=== PATIENT | female | born 1950 | race Caucasian/White ===

== ENCOUNTER 2024-12-26 07:39 | Day surgery (SDC) | payer MEDICARE, OTHER, SELFPAY ==
[2024-12-13 11:03] VITALS: BMI 20.3
[2024-12-26] VITALS (15 sets, daily range): BP systolic 112–145; BP diastolic 50–73; BMI 20.3
[2024-12-26] MEDS: TYLENOL 1000 MG PO (09:07)
[2024-12-26 11:21] LABS: ACT-LR - POC 226 Seconds (116-155)
--- NOTE | 2024-12-26 11:54 | ITS.CL.ABL ---
Graduate Advisor - Ablation
Ablation
Procedure Report:
ELECTROPHYSIOLOGY ABLATION STUDY
DATE:: December 26, 2024�����������������������������REFERRING: Dr. Philipp England
INDICATION: Paroxysmal supraventricular tachycardia in the form of atrial fibrillation.� Failed flecainide therapy
HISTORY: See H and P.� As above
ANTIARRHYTHMIC DRUG: Flecainide
PRE-PROCEDURE SISSY: No intracardiac thrombus
PRESENTING RHYTHM: Sinus bradycardia
'TIME-OUT':��called and confirmed.
SEDATION/ANESTHESIA:��provided via the anesthesia department using general anesthesia (LMA).
INTRAVENOUS/ARTERIAL ACCESS:
Right femoral venous - 8Fr
Left femoral venous - 8 Fr, 6 Fr
Ultrasound guidance for bilateral femoral vein access was utilized by me to obtain access with demonstration of normal anatomy
CHADS-VASC Score:
Vascade vascular closure and lidocaine with epinephrine was delivered to the right and left groins.
HAS-Bled Score
PROCEDURE:
1.��A decapolar CS catheter was placed within the CS for mapping and pacing.��This was also used as the reference catheter for the 3-D map.
2. The intracardiac ultrasound catheter was positioned in the RA to identify the FO for targeting of transseptal puncture, assist��in identification of the pulmonary vein ostia, monitoring pre and post ablation pulmonary vein flow velocities,
monitoring for 'bubble' formation during RF application as a sign of thermal injury,��and to monitor for pericardial effusion during mapping and ablation procedure.���Left atrial size, LV ejection fraction, and pulmonary vein flows were monitored
pre and post ablation procedure. The other valves were inspected and found to be free of significant regurgitation or stenosis.
3.��Half of the calculated heparin bolus was administered prior to the first transeptal puncture.��Transseptal puncture was performed to diagnose RA and LA pressure so that safety of LA mapping and ablation could be further assessed, and to access
the left atrium and pulmonary veins for mapping and ablation.��This entailed advancing an 8 Fr SL-1 sheath with dilator into the superior vena cava and withdrawing both (monitoring intracardiac ultrasound, fluoroscopy and tip pressure) with the tip
oriented toward the atrial septum.��The fossa ovalis was engaged (indicated by sudden displacement of the sheath tip as well as tenting of the fossa seen on intracardiac ultrasound).��Left atrial access required a pass with the Brockenbrough needle
extended.��Left atrial catheter position was confirmed by pressure monitoring (RA mean pressure 8 mm Hg and LA mean presure 14 mm Hg), LA saturation (99%),��as well as fluoroscopy.��The sheath was advanced over the dilator and positioned in the left
atrium.��This procedure was repeated for the Agilis sheath.��The remainder of the calculated heparin bolus was administered and heparin was
infused to maintain ACT at 300 -350 seconds throughout the case.
4.��RA pacing was performed via the proximal decapolar poles and LA pacing was performed via the distal decapolr poles.
5. A quadrapolar catheter was first positioned at the His position for His Bundle recording which was tagged via the 3-D Navex sytem, and then passed to the RVA for RV pacing and recording.
6. The multipolar catheter and the Penta splint catheter placed in each of the LIPV, LSPV, RSPV and the RIPV.��
7.��Next, a 3-D map was created using Navex.���A 3-D reconstructed CT image was compared to the 3-D Navex map to assist in anatomic interpretation, mapping and ablation.��The CT image and the NavX image were fused.
8. A total of 50 lesions were given to the pulmonary veins, roof, posterior wall and floor of the left atrium. Entrance exit block was confirmed. EP study post procedure did not demonstrate any inducible tachyarrhythmias.
9. Normal sinus node and AV kelsy function noted.
TOTAL FLOURO TIME: 14.6 minutes 143 mGy
TOTAL RF DURATION: 0 minutes
REVERSAL OF HEPARIN: 35 mg of protamine, slow IV administration
COMPLICATIONS:
None
Intracardiac US shows no pericardial effusion post ablation.
SUMMARY:��
Complex left atrial mapping and ablation.
Isolation of all 4 veins in the posterior wall as above.
RECOMMENDATIONS:
1. Ambulate in 4 hours
2. Resume anticoagulation
3.��Discontinue flecainide
4.� Continue AV kelsy agent
Copy to: Dr. Philipp England
--- NOTE | 2024-12-26 16:03 | W.PN.UPDATE ---
Update Note
Progress Note Update
PT seen post PFA. Bilat groin sites with vascade closure, no ht/bleeding. OOB ambulating, urinating without difficulty. Post EKG NSR 60s w/RBBB as before, no acute changes. Resume eliquis tonight. Discontinue flecainide and continue other meds as
before. Followup with Dr. England as scheduled. Home today if groin sites/tele remain stable.
== END 2024-12-26 15:57 | disposition home or self-care (01) ==
LOC: CATH 07:39
PROVIDERS: ATTENDING PHYSICIAN Internal Medicine Cardiovascular Disease; FAMILY PHYSICIAN Nurse Practitioner Family; OTHER PHYSICIAN Internal Medicine Cardiovascular Disease
DX: I48.0 Paroxysmal atrial fibrillation (principal); Z79.899 Other long term (current) drug therapy; Z79.01 Long term (current) use of anticoagulants; I10 Essential (primary) hypertension; Z85.3 Personal history of malignant neoplasm of breast; Z90.11 Acquired absence of right breast and nipple; F32.A Depression, unspecified; F41.9 Anxiety disorder, unspecified; E03.9 Hypothyroidism, unspecified; Z79.890 Hormone replacement therapy; Z88.5 Allergy status to narcotic agent; I45.10 Unspecified right bundle-branch block; I47.19 Other supraventricular tachycardia
CPT/HCPCS: C1732; C1894; C1730; C1892; C1759; 76937; 85347; 86900; 86901; 93005; 93656; 93657; C1733; C1760; C1766